=== PATIENT | female | born 1970 | race Caucasian/White ===

== ENCOUNTER → 2023-04-07 | Outpatient (CLI) | payer OTHER ==
--- NOTE | 2023-04-10 23:42 | MM ---
Reason for Exam: Screening (asymptomatic). Last mammogram was performed 11 year(s) and 6 month(s) ago. Patient History: Menarche at age 10. First Full-Term at age 18. Hormonal Contraceptives, starting at age 14 for 2 years. Risk Values: Marley 5 year model risk: 1.0%. NCI Lifetime model risk: 7.5%. Prior Study Comparison: No prior studies available for comparison. Tissue Density: There are scattered fibroglandular densities. Findings: Analyzed By CAD. There is no suspicious group of microcalcifications, significant masses, or other discrete abnormality in either breast. Overall Assessment: Negative, BI-RAD 1 Management: Screening Mammogram of both breasts in 1 year. . Patient should continue monthly self-breast exams. A clinical breast exam by your physician is recommended on an annual basis. This exam should not preclude additional follow-up of suspicious palpable abnormalities. Note on Marley scores and lifetime risk: 1. A Marley score greater than 3% is considered moderate risk. If this is the case, consider specialist referral to assess eligibility for a risk reducing agent. 2. If overall lifetime risk for the development of breast cancer is 20% or higher, the patient may qualify for future screening with alternating mammogram and breast MRI. Electronically signed and approved by: Jaya Blanco M.D. Radiologist
== END | disposition home or self-care (01) ==
LOC: RADMAMWWP 09:48
PROVIDERS: ATTEND Family Medicine
DX: Z12.31 Encounter for screening mammogram for malignant neoplasm of breast (principal)
CPT/HCPCS: 77067

== ENCOUNTER 2023-05-31 09:32 | Day surgery (SDC) | payer OTHER ==
[~2023-05-31 09:32] MED LIST: LACTATED RINGERS 1,000 ML IV SCH; LIDOCAINE 1% (10MG/ML) FOR IV START INTRADERMA PRN
[2023-05-31] MEDS ORDERED: LACTATED RINGERS 1,000 ML IV ONE (10:20)
[2023-05-31 10:36] VITALS: TEMP 978
[2023-05-31] MEDS ORDERED: PROPOFOL 10 MG/ML 20 ML VIAL IV ONE (11:21)
--- NOTE | 2023-05-31 11:40 | P.PCN ---
Date of Procedure: 05/31/23 Procedure(s) Performed: BRIEF HISTORY: Patient is a [id number] old pleasant white female scheduled for an elective colonoscopy as a part of screening for colon cancer. PROCEDURE PERFORMED: Colonoscopy. PREOPERATIVE DIAGNOSIS: Screening for colon cancer. IV sedation per Anesthesia. PROCEDURE: After informed consent was obtained, the patient, was brought into the endoscopy unit. IV sedation was administered by Anesthesia under continuous monitoring. Digital rectal examination was normal. Initially the Olympus CF-160 flexible video colonoscope was then inserted in the rectum, gradually advanced into the cecum without any difficulty. Careful examination was performed as the scope was gradually being withdrawn. Ileocecal valve and the appendiceal orifice were visualized and appeared normal. Prep was excellent. Mucosa of the cecum, ascending colon, transverse colon, descending colon, sigmoid colon, and rectum appeared normal. scattered sigmoid diverticulosis. Retroflexion was performed in the rectum and no lesions were seen. The patient tolerated the procedure well. IMPRESSION: Normal-appearing colon from rectum to cecum no evidence of colorectal neoplasia. Scattered sigmoid diverticulosis. RECOMMENDATIONS: Findings of this examination were discussed with the patiewell as her family. She was advised to have a repeat screening colonoscopy in 10 years.
[2023-05-31 11:58] VITALS: RESP 16
[2023-05-31 12:18] VITALS: BP 121/84; PULSE 54
== END 2023-05-31 12:22 | disposition home or self-care (01) ==
LOC: ORWHC2ENDO 09:32
PROVIDERS: ATTEND Internal Medicine Gastroenterology
DX: Z12.11 Encounter for screening for malignant neoplasm of colon (principal); K57.30 Diverticulosis of large intestine without perforation or abscess without bleeding; E78.5 Hyperlipidemia, unspecified; F17.200 Nicotine dependence, unspecified, uncomplicated; Z79.899 Other long term (current) drug therapy
CPT/HCPCS: 81025; 45378; J2704